=== PATIENT | female | born 1990 | race Caucasian/White ===

== ENCOUNTER 2018-04-03 21:12 | Emergency (ER) | payer SELFPAY, OTHER ==
[2018-04-04] MEDS: HYDROCODONE/APAP (5/325) TAB PO (00:01)
== END 2018-04-04 01:31 | disposition home or self-care (01) ==
LOC: FTE 21:12
DX: R07.81 Pleurodynia (principal)
CPT/HCPCS: 71046; 73030; 81025; 99284-25